=== PATIENT | female | born 1995 | race Caucasian/White ===

== ENCOUNTER 2022-02-02 00:25 | Day surgery (SDC) | payer BC, SELFPAY ==
[2022-01-25 11:16] VITALS: BMI 21.0
--- NOTE | 2022-02-02 09:16 | P.PNAN_ITS ---
Anes - Initial Pre Proc Eval Procedure: Operation Date: 02/02/22 13:30 Proposed Procedures p Colonoscopy - Avila Davis MD Date/Time: 02/02/22 09:16 Surgeon: Avila Davis MD Pre Op Diagnosis: abdominal bloating, diarrhea Patient Data Age: 26 Gender: F Height: 1.7 m Weight: 61 kg Allergies Allergy/AdvReac Type Severity Reaction Status Date / Time nabumetone Allergy Unknown RASH Verified 02/02/22 12:22 Home Medications Medication Instructions Recorded Confirmed Type No Home Medications 07/15/21 02/02/22 History Patient hx anesthesia problems: none Family hx anesthesia problems: none Results Review: All pre-operative results and documents have been reviewed as part of the pre-operative evaluation. [facility] Past Medical History Medical History Abdominal bloating Asthma Chronic diarrhea Family History Family History Mother Diabetes mellitus Patient's mother is in good health Social History Social History Smoking status: Never smoker Alcohol intake: current Alcohol use details: occasionally Substance use: never Substance use type: does not use Living arrangements: with family Spiritual care concerns: No Anes - Eval Final PreProcedure Day of Procedure 02/02/22 09:16 Patient weight: normal Heart: regular rate and rhythm Lungs: clear to auscultation and normal air movement Airway: Mallampati scale class II Neurological: alert and oriented Last oral intake: >/= 8 hours ASA classification: I Emergent: no Anesthetic plan: proceed Anesthesia type and monitoring: general GIVS Results Review: All pre-operative results and documents have been reviewed as part of the pre-operative evaluation. Informed Consent: The patient's anesthetic plan and its attendant risks and benefits were discussed with the patient/family/POA. Questions were solicited and answers provided to the satisfaction of the patient/family/POA.
[2022-02-02 12:08] VITALS: BP 111/66; PULSE 90; RESP 18; TEMP 36.2; O2SAT 100; BMI 19.4
--- NOTE | 2022-02-02 12:43 | PM.HPGS ---
History of Present Illness History of Present Illness Consent: Risks, benefits, and alternatives have been discussed and questions answered. Patient agrees to proceed with procedure. Chief complaint: abdominal bloating, diarrhea Narrative: Patricia Doherty is a 26 year old female who for many years she has suffered from a great deal of abdominal distension and bloating. Typically she will feel fine in the morning, especially if she has a morning bowel movement. As the day goes on she gets uncomfortable with bloating and cramping. There is no particular pattern. Eating does not seem to affect it. Her weight is stable. She may not have a bowel movement for 3 or 4 days. Then when her bowels do move is usually loose. At times her bowels are very loose. She does not have blood in her stools. Serology for inflammatory bowel disease was negative. Review of Systems Review of Systems: All systems reviewed & are unremarkable except as noted in HPI and below PMFSH Past Medical History Medical History Abdominal bloating Asthma Chronic diarrhea Family History Family History Mother Diabetes mellitus Patient's mother is in good health Social History Social History Smoking status: Never smoker Alcohol intake: current Alcohol use details: occasionally Substance use: never Substance use type: does not use Living arrangements: with family Spiritual care concerns: No Meds Home Medications and Allergies Home Medications Medication Instructions Recorded Confirmed Type No Home Medications 07/15/21 02/02/22 History Allergies Allergy/AdvReac Type Severity Reaction Status Date / Time nabumetone Allergy Unknown RASH Verified 02/02/22 12:22 Vital Signs Vital Signs - 24 hr 02/02/22 12:08 Temperature 36.2 C L Pulse Rate 90 Respiratory Rate 18 Blood Pressure 111/66 Pulse Oximetry 100 Exam Const: General: alert Orientation/consciousness: patient oriented x3 Resp: Auscultation: clear to auscultation bilaterally Cardio: Rhythm: regular rhythm GI: GI Palp: Yes Soft to palpation and No Tenderness to palpation present (GI) Neuro: General: patient oriented x3 Assessment and Plan Assessment and plan (1) Chronic diarrhea: Code(s): K52.9 - Noninfective gastroenteritis and colitis, unspecified Status: Acute Assessment and Plan: Colonoscopy with possible biopsy or polypectomy or cautery or injection of substances.
[2022-02-02] MEDS: LACTATED RINGERS 1,000 ML 150 ML IV CONT (13:00)
[2022-02-02 13:31] VITALS: BP 82/48; PULSE 67; RESP 18; O2SAT 99
[2022-02-02 13:41] VITALS: BP 93/60; PULSE 73; RESP 16; O2SAT 100
[2022-02-02 13:51] VITALS: BP 98/63; PULSE 63; RESP 24; O2SAT 100
== END 2022-02-02 14:00 | disposition home or self-care (01) ==
PROVIDERS: PCP Internal Medicine; Visit Provider Internal Medicine Gastroenterology
PROC: 0DJD8ZZ Inspection of Lower Intestinal Tract, Via Natural or Artificial Opening Endoscopic (ICD-10-PCS; CPT 45378; principal; 2022-02-02 13:30)
DX: R19.7 Diarrhea, unspecified (principal); D12.4 Benign neoplasm of descending colon
CPT/HCPCS: 45380; 88305; J2704; J7120

== ENCOUNTER 2024-12-17 20:44 | Outpatient (RCR) | payer BC, SELFPAY ==
[2024-12-17 21:32] VITALS: BP 112/50; PULSE 72
== END 2025-01-25 07:41 | disposition home or self-care (01) ==
LOC: ANHOBOP 20:44
PROVIDERS: Referring Provider Advanced Practice Midwife; Visit Provider Obstetrics & Gynecology
DX: O36.8130 Decreased fetal movements, third trimester, not applicable or unspecified (principal); Z3A.35 35 weeks gestation of pregnancy
CPT/HCPCS: 59025

== ENCOUNTER 2025-01-22 22:48 | Inpatient (IN) | payer BC, SELFPAY ==
[2025-01-22 22:57] VITALS: TEMP 36.6
[2025-01-22 23:22] VITALS: PULSE 71; O2SAT 99
--- OUTSIDE RECORDS SUMMARY | 2025-01-22 23:25 | XMS_ITS | Patient Health Record ---
Author Organization [facility] Address [address] [place] [address] [address] [place] [address] Care Team Providers Care Manager Mba Name Role Phone Sharon Holley Primary Care Provider ALLERGIES Allergen (clinical drug ingredient) Drug/Non Drug Allergy documented on EMR Reaction Allergy Type Onset Date Status nabumetone Nabumetone rash Drug Allergy Activ e REASON FOR REFERRAL No Information IMMUNIZATIONS Vaccine Route Administration Date Status Comme nts zzzInfluenza (Flublok 18+) IM Intramuscular 11/09/2022 Adm inistered SOCIAL HISTORY Tobacco Use: Social History Observation Description Date Details (start date - stop date) Never Smoker NA - NA Sex Assigned At : Social History Observation Description Sex Assigned At Unknown Alcohol Screening Done? Question Answer Notes Did you have a drink contain ing alcohol in the past year? Yes How often did you have a dri nk containing alcohol in the past year? Two to three times per week (3 points) How many drinks did you have on a typical day when you were drinking in the past year? 1 or 2 (0 points) How often did you have six o r more drinks on one occasion in the past year? Never (0 points) Points 3 GA Screenings: Question Answer Notes Smoking Status: Never Smoker Alcohol Screening: Positive PROBLEMS Problem Type ICD Code Onset Dates Problem Status W/U Status Risk SNOMED Code Notes Problem Other headache syndrome (G44.89) Active confirmed 784142306 Problem Chronic fatigue (R53.82) Active confirmed 39684367 Problem Low blood glucose measurement (E16.2) Active confirmed 280005409 PLAN OF TREATMENT Pending Test Test Name Order Date Hemoglobin A1C (DP 12) (CPT 40950) 11/13 -Blood Draw / Specimen Handling Fee 10/27 Insurance Providers Payer Name Payer Address Payer Phone Subscriber Number Group Number Insured Name Patient Relationship to Insured Coverage Start Date Coverage End Date [facility] [address] [place] [address] [id number] Patricia Whitehead Self - patient is the insured MEDICAL (GENERAL) HISTORY Medical History History ICD Code Asthma// resolved IBS/SIBO//[facility] colonoscopy due 2024 Surgical History Surgery Date(Month/Year) appendectomy 02/2009 colonoscopy / polyp , rpt in 3 yrs 2 Left foot, plantar faciatis 09/29/2022 Hospitalization History Reason Date(Month/Year) as above
--- OUTSIDE RECORDS SUMMARY | 2025-01-22 23:25 | XMS_ITS | Continuity of Care Document ---
Author Organization [facility] Address [address] [place] [address] Phone Care Team Providers Care Shipping Lead Person Name Role Phone Francisco Javier Vásquez MD Unavailable Unavailable Allergies, Adverse Reactions, Alerts Substance Reaction Status Criticality No Known Allergies Active No Inform ation Medications Medication Instructions Dosage Effective Dates (start - stop) Status Comments Pulmicort Flexhaler 180 mcg/actuation breath activated INHALE 2 PUFFS (180MCG) EVERY DAY - Active ProAir RespiClick 90 mcg/actuation breath activated inhale 2 puff by inhalation route every 4 - 6 hours as needed 180 MCG - Active Pulmicort Flexhaler 180 mcg/actuation breath activated INHALE 2 PUFFS (180MCG) EVERY DAY - No Longer Active Advance Directives Directive Yes / No Effective Date File Name No Information Encounters Encounter Description Practice Location Reason(s) For Visit Diagnoses Date Provider Providers Copied on Encounter [facility], [address], [place], [place], [id number] , [place] tel: [phone] [facility] No Information 7 Fahad Mcintyre. [address], [id number], [place]. tel:[phone] [facility], [address], [place], [place], [address] , [place] tel: [phone] [facility] Mild persistent asthma, uncomplicated 7 Fahad Mcintyre. [address] [facility], [address], [id number], [place]. [phone] Referring Provider: iJtendra Issa, [address] [facility] [address], [place], [address]. tel:[phone] [facility], [address], [place], [place], [id number] , [place] tel: [phone] [facility] Mild persistent asthma, uncomplicated Jun-0 6 Onel Dorado. [address] [facility], [address], [id number], [place]. [phone] Referring Provider: Francisco Javier Vásquez, [address] [place] [address], [place], [address] . tel:[phone] [facility], [address], [place], [place], [id number] , [place] tel: [phone] [facility] INTRINSIC ASTHMA, UNSPECIFIED 5 Fahad Mcintyre. [address] [facility], [address], [id number], [place]. [phone] Referring Provider: Jitendra Issa, [address] [facility] [address], [place], [address]. tel:[phone] [facility], [address], [place], [place], [address] , [place] tel: [phone] [facility] INTRINSIC ASTHMA, UNSPECIFIED 4 Fahad Mcintyre. [address] [facility], [address], [id number], [place]. [phone] Referring Provider: Mirza Pham, [address], [place], [address]. tel:[phone] [facility], [address], [place], [place], [id number] , [place] tel: [phone] [facility]hma 3 Radha Monteiro. [address], [place], [place], [id number]. tel:[phone] Referring Provider: Francisco aJvier Vásquez, [address] [place] [address], [address] . tel:[phone] [facility], [address], [place], [place], [id number] , [place] tel: [phone] [facility] INTRINSIC ASTHMA, UNSPECIFIED 3 Fahad Mcintyre. [address] [place] [address], [address], [id number], [place]. tel:[phone] Referring Provider: Mirza Cruz, [address] [address], [place], [address]. tel:[phone] [facility], [address], [place], [place], [id number] , [place] tel: [phone] [facility] ASTHMA,UNSPECIFI ED TYPE, UNSPECIFIED 2 Radha Monteiro. [address], [place], [place], [id number]. tel:[phone] Referring Provider: Francisco Javier Vásquez, [address] [place] [address], [address] . tel:[phone] [facility] [address], [place], [place], [id number] , [place] tel: [phone] [facility] INTRINSIC ASTHMA, UNSPECIFIEDNASAL & SINUS DIS NECOther diseases of vocal cords 1 Fahad Mcintyre. [address] [facility], [address], [id number], [place]. [phone] Referring Provider: Pooja Gand[address] [address], [place], [address]. tel:[phone] [facility], [address], [place], [place], [address] , [place] tel: [phone] [facility] INTRINSIC ASTHMA NOS Sep-3 0 Fahad Mcintyre. [address], [id number], . tel:[phone] Family History Family Member Type Diagnosis Age At Onset No Information Payers Payer name Insurance type Covered alliance party ID Authortom vera(s) [employer] [facility] [id number] Social History Type Description Quantity Date Captured Comments Sex Female Smoking Status No Information Chief Complaint And Reason For Visit No Information Reason For Referral Reason For Referral No Information History Of Present Illness Encounter Date Complaint History Of Prese nt Illness No Information Functional Status Date Functional Assessmen t No Information Instructions Date Instruction Additional Infor mation No Information Assessments Type Assessment Date No Information Patient Care Teams Name Effective Dates (start - stop) Status Members No Information
--- OUTSIDE RECORDS SUMMARY | 2025-01-22 23:25 | XMS_ITS | Data Portability ---
Author Organization [facility] Address [address] [place] [address] Assessment Encounter Date Assessment Date Assessment LastModified by Organization Details LastModified Time 12/18/2024 12/18/2024 Patient is __35_weeks . Discussed plan. Not available 12/18/2024 14:33:54 12/25/2024 12/25/2024 Patient is _36__weeks . Discussed plan. [email or web address] Not available 12/25/2024 12:35:24 01/01/2025 01/01/2025 Patient is _37__weeks . Discussed plan. Not available 01/01/2025 11:36:27 01/08/2025 01/08/2025 Patient is _38__weeks . Discussed plan. [email or web address] Not available 01/08/2025 11:05:30 01/17/2025 01/17/2025 Patient is __39_weeks . Discussed plan. Not available 01/17/2025 16:08:23 Plan of Treatment Reminders Order Date Submit Date Provider Last Modified By Organization Details Last Modified Time Details Appointments U/S OB BPP 2024 12:30P M ULTRASOUND Not available Not available Not available NST 2024 01:00P M NST SCHEDULE Not available Not available Not available OB ROUTINE 2024 01:30P M Junie Lester CNM Not available Not available Not available Lab None recorde d. Referral None recorde d. Procedures None recorde d. Surgeries None recorde d. Imaging None recorde d. Medication Orders None recorde d. Patient TargetsNo targets recorded. Patient InstructionsNo instructions recorded. Reason for Referral None Reported. Results Created Date Observation Date Name Description Value Unit Range Abnormal Flag Note LastModifiedBy Organization Detail LastModifiedTime 12/04/1912/04/2024 CT/GC AND TRICH OMONA S VAGIN HEMANTH (RRNA ), URINE chlamydia trachomatis, PCR Negati ve negati ve Not Available [facility] (Lab) [address], [place], [address], 12/05/2024 22:02:21 12/04/1912/04/2024 CT/GC AND TRICH OMONA S VAGIN HEMANTH (RRNA ), URINE neisseria gonorrhoeae, PCR Negati ve negati ve Not Available [facility] (Lab) [address], [place], [address], 12/05/2024 22:02:21 12/04/1912/04/2024 CT/GC AND TRICH OMONA S VAGIN HEMANTH (RRNA ), URINE trichomonas vaginalis ribosomal RNA (rrna) Negati ve negati ve Not Available [facility] (Lab) [address], [place], [address], 12/05/2024 22:02:21 12/04/1912/04/2024 CULTU RE: URINE result report SEE RESULT S BELOW Test: Cultu re: Urine Speci men Sourc e: Urine - Clean Catch Speci men Type: Urine Speci men Date: 1744 Resul t Date: 2057 Resul t Statu s: Final resul t Abnor mal: No Resul ting Lab: [facility] [address] [facility] [address] Tel: CULTU RE ----- ----- ----- --- No growt h in 1 day (dete ction level of 10,00 0 colon ies / ml.) Not Available [facility] (Lab) [address] [place], [address], 12/05/2024 22:02:21 12/04/19 25 12/04/2024 drug scree n, urine Amphetamines : negati ve Not Available [facility] [address], [place], [address], 12/04/2024 12:11:25 12/04/19 25 12/04/2024 drug scree n, urine Cannabinoids : negati ve Not Available [facility] [address], [place], [address], 12/04/2024 12:11:25 12/04/19 25 12/04/2024 drug scree n, urine Cocaine: negati ve Not Available [facility] [address], [place], [address], 12/04/2024 12:11:25 12/04/19 25 12/04/2024 drug scree n, urine Opiates: negati ve Not Available [facility] [address], [place], [address], 12/04/2024 12:11:25 12/04/19 25 12/04/2024 drug scree n, urine Phenocyclidi ne: negati ve Not Available [facility] [address], [place], [address], 12/04/2024 12:11:25 12/04/19 25 12/04/2024 drug scree n, urine Barbiturates : negati ve Not Available [facility] [address], [place], [address], 12/04/2024 12:11:25 12/04/19 25 12/04/2024 drug scree n, urine Benzodiazepi freddy: negati ve Not Available [facility] [address], [place], [address], 12/04/2024 12:11:25 12/04/19 25 12/04/2024 drug scree n, urine Ethanol: negati ve Not Available [facility] [address], [place], [address], 12/04/2024 12:11:25 12/04/19 25 12/04/2024 drug scree n, urine Hallucinogen s: negati ve Not Available [facility] [address], [place], [address], 12/04/2024 12:11:25 12/04/19 25 12/04/2024 drug scree n, urine Inhalants: negati ve Not Available [facility] [address], [place], [address], 12/04/2024 12:11:25 12/04/19 25 12/04/2024 drug scree n, urine Anabolic Steroids: negati ve Not Available [facility] [address], [place], [address], 12/04/2024 12:11:25 12/04/19 25 12/04/2024 drug scree n, urine Other: negati ve Not Available [facility] [address], [place], [address], 12/04/2024 12:11:25 12/25/19 25 12/25/2024 CULTU RE: GROUP B STREP SCREE N, REFLE X SUSCE PTIBI LITY result report SEE RESULT S BELOW Test: Cultu re: Group B Strep , Refle x Susce ptibi lity ([facility] ) Speci men Sourc e: Vagin a/Rec stewart Speci men Type: Vagin al/Re ctal Speci men Date: 2024 1333 Resul t Date: 025 1410 Resul t Statu s: Final resul t Abnor mal: No Resul ting Lab: [facility] [address] [facility] [address] Tel: CULTU RE ----- ----- ----- --- No Group B strep isola kvng at 2 days (sherly ctive broth enhdeyanira martines t) Not Available [facility] (Lab) [address], [place], [address], 12/28/2024 15:13:53 12/04/19 25 12/04/2024 US, obste tric, follo w-up No observ ation record ed. [email or web address] [facility] [address], [place], [address], 12/04/2024 13:09:18 12/04/19 25 12/04/2024 US, obste tric, follo w-up No observ ation record ed. [email or web address] [address] [facility], [place], [address], 12/04/2024 14:37:48 12/17/19 25 12/17/2024 non-s tress test No observ ation record ed. [address] [facility] [address], [place], [address], 12/19/2024 18:37:11 01/18/20 25 01/18/2025 non-s tress test No observ ation record ed. [address], [place], [address], 01/21/2025 16:56:20 Result Notes None recorded. Problems Name Problem SNOMED Code Status Onset Date Resolution Date Notes Provider Name and Address Organization Details Recorded Time [id number] Active 025 Naila Paez [facility] 12:07:31 Problem Notes None recorded. Procedures Surgical History Date Name Laterality Status Provider Name and Address Organization Details Recorded Time 05/27/20 24 Date of Last Pap Smear completed Naila Paez [facility] 12/04/2024 11:52:00 09/27/20 22 procedure on foot completed Naila Paez [facility] 12/04/2024 11:54:04 01/26/20 22 completed [facility] 12/04/2024 11:52:00 01/26/20 22 Date of Last Colonoscopy completed [facility] 12/04/2024 11:52:00 01/26/20 22 Colonoscopy completed [facility] 12/04/2024 12:07:12 04/27/20 15 procedure on foot completed [facility] 12/04/2024 11:53:32 02/26/20 09 Appendectomy completed [facility] 12/04/2024 11:52:33 Imaging Results Imaging Date Name Status LastModified by Organiz ation Details LastModified Time 12/04/2024 US, obstetric, follow-up completed [email or web address], [place], [address], 12/04/2024 13:09:18 12/04/2024 US, obstetric, follow-up completed [email or web address], [place], [address], 12/04/2024 14:37:48 12/17/2024 non-stress test completed [address] [place] [address], [address], 12/19/2024 18:37:11 01/18/2025 non-stress test active [address], [place], [address], 01/21/2025 16:56:20 Procedure Notes None recorded. Medical Equipment None Reported. Allergies Allergen ID Allergen Name Allergen Category Reaction Reaction Severity Criticality Documentation Date Start Date Code Code System Note Provider Name and Address Organization Details Recorded Time 05734 [place] e medicatio n hives mild Not available 12/04/2024 01863 RxNorm Naila Paez [facility] 11:52:00 Vitals Date Recorded Body height Body mass index (BMI) Body weight Systolic blood pressure Diastolic blood pressure Provider Name and Address Organization Details Last Updated DateTime 12/18/2024 170.82 cm 25.3 kg/m2 15793.55 631 g 104 mm[Hg] 68 mm[Hg] Naila Paez [facility] 14:17:52 Date Recorded Body height Body mass index (BMI) Body weight Systolic blood pressure Diastolic blood pressure Provider Name and Address Organization Details Last Updated DateTime 12/25/2024 170.82 cm 25.5 kg/m2 13749.14 868 g 105 mm[Hg] 68 mm[Hg] Naila Paez [facility] 12:16:59 Date Recorded Body height Body mass index (BMI) Body weight Systolic blood pressure Diastolic blood pressure Provider Name and Address Organization Details Last Updated DateTime 01/01/2025 170.82 cm 26.1 kg/m2 44721.51 816 g 107 mm[Hg] 68 mm[Hg] Naila Paez [facility] 11:06:35 Date Recorded Body height Body mass index (BMI) Body weight Systolic blood pressure Diastolic blood pressure Provider Name and Address Organization Details Last Updated DateTime 01/08/2025 170.82 cm 26.1 kg/m2 78121.51 816 g 101 mm[Hg] 64 mm[Hg] Naila Paez [facility] 5 11:03:20 Date Recorded Body height Body mass index (BMI) Body weight Systolic blood pressure Diastolic blood pressure Provider Name and Address Organization Details Last Updated DateTime 01/17/2025 170.82 cm 26.1 kg/m2 51117.51 816 g 99 mm[Hg] 65 mm[Hg] Naila Paez [facility] 15:59:05 Social History Question Answer Notes LastModified by Organizat ion Details LastModified Time Tobacco Smoking Status Never Smoker Naila Paez [facility], [facility] 12/04/2024 12:07:01 Do You Have An Advance Directive? No [email or web address] Information n ot available 12/04/2024 What Is Your Level Of Alcohol Consumption? None [email or web address] Information not available 12/04/2024 If You Are , What Was Your Level Of Alcohol Consumption Prior To ? Moderate [email or web address] Information not available 12/04/2024 How Many Years Have You Consumed Alcohol? 7 [email or web address] Information not available 12/04/2024 Are You Blind Or Do You Have Difficulty Seeing? No Information n ot available 12/04/2024 What Is Your Level Of Caffeine Consumption? Moderate [email or web address] Information not available 12/04/2024 How Much Tobacco Do You Chew? None [email or web address] Information not available 12/04/2024 In The 14 Days Before Symptom Onset, Have You Had Close Contact With A Laboratory-confirm ed COVID-19 While That Case Was Ill? No [email or web address] Information n ot available 12/04/2024 In The 14 Days Before Symptom Onset, Have You Had Close Contact With A Person Who Is Under Investigation For COVID-19 While That Person Was Ill? No Information not available 12/04/2024 Have You Been To An Area Known To Be High Risk For COVID-19? No [email or web address] Information not available 12/04/2024 Are You Deaf Or Do You Have Serious Difficulty Hearing? No [email or web address] Information not available 12/04/2024 What Type Of Diet Are You Following? REGULAR [email or web address] Information n ot available 12/04/2024 What Is The Highest Grade Or Level Of School You Have Completed Or The Highest Degree You Have Received? [id number] Information not available 12/04/2024 Are There Any Guns Present In Your Home? No [email or web address] Information not available 12/04/2024 Do You Use Protection During Sex? No Information not available 12/04/2024 Do You Use Your Seat Belt Or Car Seat Routinely? Yes [email or web address] Information not available 12/04/2024 Do You Have Smoke And Carbon Monoxide Detectors In Your Home? No [email or web address] Information not available 12/04/2024 How Much Tobacco Do You Smoke? No Information not available 12/04/2024 Do You Feel Stressed (tense, Restless, Nervous, Or Anxious, Or Unable To Sleep At Night)? [id number] [email or web address] Information not available 12/04/2024 Do You Use Any Illicit Or Recreational Drugs? No [email or web address] Information not available 12/04/2024 Do You Use Sunscreen Routinely? Yes [email or web address] Information not available 12/04/2024 Has Tobacco Cessation Counseling Been Provided? No [email or web address] Information not available 12/04/2024 Have You Used IV Drugs? No [email or web address] Information not available 12/04/2024 Do You Or Have You Ever Used Any Other Forms Of Tobacco Or Nicotine? No [email or web address] Information not available 12/04/2024 Sex: Unknown Functional Status Question Answer Note LastModified by Organizat ion Details LastModified Time Do you have difficulty walking or climbing stairs? No [email or web address] Information not available 12/04/2024 Are you able to walk? YESWOREST Information not available 12/04/2024 Are you able to care for yourself? Yes [email or web address] Information not available 12/04/2024 Do you have difficulty dressing or bathing? No [email or web address] Information not available 12/04/2024 What is your exercise level? Moderate [email or web address] Information not available 12/04/2024 Mental Status None recorded. Family History Relationship Description Onset Age of this Age Resolved Age Notes LastModified by Organization Details LastModified Time Mother Hypertensive disorder [email or web address] Not available 12/04 11:52:00 Mother Diabetes mellitus [email or web address] Not available 12/04 11:52:00 Maternal Aunt Hypertensive disorder [email or web address] Not available 12/04 11:52:00 Maternal Aunt Diabetes mellitus [email or web address] Not available 12/04 11:52:00 Maternal Grandmother Diabetes mellitus [email or web address] Not available 12/04 11:52:00 Maternal Grandmother Hypertensive disorder [email or web address] Not available 2024 10:46:36 Maternal Grandfather Hypertensive disorder [email or web address] Not available 2024 10:46:36 Paternal Grandfather Hypertensive disorder [email or web address] Not available 2024 10:46:36 Paternal Grandmother Hypertensive disorder [email or web address] Not available 2024 10:46:36 Medical History Condition Response Allergies (Food, seasonal, environmental ) Y Other N Drug/Latex Allergies/Reactions Y Breast Cancer N Blood Transfusion N Lung Disease N Dermatologic Disorders N Defects or Inherited Disease N Breast Problem N Gestational Diabetes N Hematologic disorders N Anesthesia Complications N History of STI N Deep Vein Thrombosis N Polycystic ovary syndrome N Anxiety Disorder N Autoimmune disease N Arthritis N Polyps N Infertility N History of abnormal pap N Acid Reflux (GERD) N Cancer N Varicosities N Stroke N Neurologic/Epilepsy N Endometriosis N High Cholesterol N Headaches N Fibromyalgia N Kidney Disease N Heart Problems N Thyroid Problems N Kidney or Bladder Problems N GI Problems N Eating Disorder N Anemia N Art (IVF or FET) N Psychiatric Illness N Ovarian Cancer N Diabetes N Pulmonary (TB, Asthma) N Hepatitis/Liver Disease N No Past Medical History N Eczema N Urinary Tract Infection N Abuse/Domestic Violence N Asthma Y Trauma/Violence N Depression/ depression N Heart Disease N Pre-Eclampsia N Hypertension N Osteoporosis N Thrombophilias N Gynecological History Statement/Question Response Abnormal Pap N Date of Last Mammogram Date of LMP 04/15/2024 On BCP's at Conception? N N Was last menstrual period normal N STIs/STDs N HPV Vaccine Y Duration of Flow (days) 5 Current Control Method Date of Last Colonoscopy 01/25/2022 Frequency of Cycle (Q days) 28 Sexually Active? Y Date of DEXA bone scan Age of first menstrual cycle 17 Date of Last Pap Smear 05/27/2024 Sexual Problems? N LMP Approximate 01/25/2022 N Obstetrics History GPAL:G 1 P 0 0 0 0 Type Value Living 0 Total 1 Past Encounters Encounter ID Performer Location Encounter Start Date Encounter Closed Date Diagnosis/Indication Diagnosis SNOMED-CT Code Diagnosis ICD10 Code Diagnosis Note [id number] Corazon Hastings [facility] [address] [address] 12/04/2024 10:52:33 12/04/2024 11:32:40 Medical examination for suspected condition 431477266 Z03.74 Z3A.33 [id number] Junie Lester [facility] [address],[place] [address] 12/04/2024 10:53:39 12/04/2024 14:34:47 Routine care 647814829 Z34.93 Venereal d isease screening 002449445 Z11.3 Gestation period, 33 weeks 86233916 Z3A.33 [id number] Junie Lester [facility] [address],[place] [address] 12/18/2024 14:07:47 12/18/2024 14:49:27 Gestation period, 35 weeks 96130421 Z3A.35 [id number] Junie Lester [facility] [address],[place] [address] 12/25/2024 12:10:40 12/25/2024 12:41:10 Gestation period, 36 weeks 42868336 Z3A.36 [id number] Junie Lester [place] [address] [address] 01/01/2025 10:46:28 01/01/2025 11:42:04 Gestation period, 37 weeks 14507706 Z3A.37 [id number] Junie Lester [facility] [address],[place] [address] 01/08/2025 10:43:40 01/08/2025 11:14:57 Gestation period, 38 weeks 21453908 Z3A.38 [id number] Junie Lester [facility] [address],[place] [address] 01/17/2025 15:29:29 01/17/2025 16:15:57 Gestation period, 39 weeks 16786084 Z3A.39 Health Concerns Section Related Observation LastModified by Organization Detai ls LastModified Time None Recorded Concern Status LastModified by Organization Details LastModified Time None Recorded Advance Directives Directive N: Payers Encounter Date Sequence Insurance Name Policy Number Policy Jiménez Covered Member ID Jiménez Member ID Guarantor Name 12/18/2024 1 [place] [id number] Mack Whitehead [id number] Patricia M Ventura 12/25/2024 1 [place] [id number] Mack Daileyner [id number] Patricia Mcclellan [place] 01/01/2025 1 [place] [id number] Mack Whitehead [id number] Patricia M Ventura 01/08/2025 1 [place] [id number] Mack Whitehead [id number] Patricia Mcclellan [place] 01/17/2025 1 [place] [id number] Mack Whitehead [id number] Patricia Whitehead OBGyn Episode Ob Episode Information Episode Created Date Number of Fetuses Patient Bloodtype Patient rh Status Prepregnancy Weight lbs Domestic Partner Domestic Partner Phone Father Name Metal Sorter Status 12/04/19 25 1 O Positive OPEN Fetus Data First Name Last Name Admitted to NICU Weight (g) Sex Living Outcome Pediatric Complications Fetus ID Race Codes Race Delivery Type [id number] Donald Calculation Initial Donald Date Initial Exam Date Initial Exam Provider Initial Ultrasound Date Last Menstrual Period Date Ultra Sound Weeks Gestation 01/20/2025 12/04/2024 12/04/2024 04/15/2024 33 Eighteen To Twenty Week Donald Update Ultra Sound Date Fundal Height At Umbil Quickening Date Ultra Sound Latest Weeks Gestation Final Donald Confirmed By Final Donald Confirmed Date Final Donald Date Ultra Sound Latest Days Gestation 0 01/20/20 25 0 Pre- Flowsheet Flowsheet Date 12/04/2024 [place] Score Blood Edema Fundus Height Fundus Units Glucose Ketones Leukocytes Nitrite Labor Signs Protein Cervic Dilation Cervic Effacement Cervic Station neg none none trace Type Weight in lbs Pre/Post Dialysis Refused Weight 161.130210168931 BP Diastolic BP Location Tested BP Systolic BP Type 70 105 Fetus Heart Rate Present Fetus Movement A Yes Comments Flowsheet Date 12/18/2024 [place]ittington Score Blood Edema Fundus Height Fundus Units Glucose Ketones Leukocytes Nitrite Labor Signs Protein Cervic Dilation Cervic Effacement Cervic Station neg none 35 cm Type Weight in lbs Pre/Post Dialysis Refused 163.149431492633 BP Diastolic BP Location Tested BP Systolic BP Type 68 104 Fetus Heart Rate Present A 146 Present Fetus Movement A Yes Comments Patient is contractions, joel sea and vomiting. planning low intervention , +FM, has preadmission scheduled, gbs next week education and precautions f/u one week Flowsheet Date 12/25/2024 [place]ittington Score Blood Edema Fundus Height Fundus Units Glucose Ketones Leukocytes Nitrite Labor Signs Protein Cervic Dilation Cervic Effacement Cervic Station neg none neg Type Weight in lbs Pre/Post Dialysis Refused 164.68302791634 BP Diastolic BP Location Tested BP Systolic BP Type 68 105 Fetus Heart Rate Present Fetus Movement A Yes Comments Patient states that is havin g some nausea. reviewed labor precautions, +FM cervix ft/soft, gbs collected, precautions and education f/u 1 week Flowsheet Date 01/01/2025 Whittington Score Blood Edema Fundus Height Fundus Units Glucose Ketones Leukocytes Nitrite Labor Signs Protein Cervic Dilation Cervic Effacement Cervic Station neg none 35 cm Type Weight in lbs Pre/Post Dialysis Refused 168.225455908495 BP Diastolic BP Location Tested BP Systolic BP Type 68 107 Fetus Heart Rate Present A 140 Fetus Movement A Yes Comments Patient states that is havin g some pain and nausea. +FM, precautions and education f/u one week Flowsheet Date 01/08/2025 [place]ittington Score Blood Edema Fundus Height Fundus Units Glucose Ketones Leukocytes Nitrite Labor Signs Protein Cervic Dilation Cervic Effacement Cervic Station neg none 36 cm Type Weight in lbs Pre/Post Dialysis Refused 168.264506562253 BP Diastolic BP Location Tested BP Systolic BP Type 64 101 Fetus Heart Rate Present A 144 Fetus Movement A Yes Comments Patient states that is havin g some contractions. cervix soft/FT +FM, doing well, precautions and education Flowsheet Date 01/17/2025 [place]ton Score Blood Edema Fundus Height Fundus Units Glucose Ketones Leukocytes Nitrite Labor Signs Protein Cervic Dilation Cervic Effacement Cervic Station neg none 37 cm 1cm 60% -2 Type Weight in lbs Pre/Post Dialysis Refused 168.814316616073 BP Diastolic BP Location Tested BP Systolic BP Type 65 99 Fetus Heart Rate Present A 147 Fetus Movement A Yes Comments Patient has had contraction. labor precautions, +FM, education and precautions discussed placental insufficiency after term plan bpp next week Menstrual History Last Menstrual Date Menses Monthly On Bcp Conception Prior Menses Frequency Hcg Plus Date Menarche Onset Age 0504/15/2024 Delivery Information Delivery Date Delivery Type Labor Anesthesia Weeks Gestation Incision Type Labor Labor Length Hrs Delivered By Post Complications Tubal Sterilization Discharge Date Comments Discharge Information Feeding Method Contraceptive Method Maternal HG B and HCT Levels
--- OUTSIDE RECORDS SUMMARY | 2025-01-22 23:25 | XMS_ITS | Clinical Summary ---
Author Organization [facility] Care Address [address] [place] [address] Care Team Providers Care [employer] Name Role Phone Pcp, None Per Patient Primary Care Provider Unav ailable Source Comments In the event that these patient records contain information protected by 42 CFRpart 2 (i.e., would identify the patient as a substance abuser and was obtainedby a federally assisted substance abuse program to diagnose, refer fortreatment or treat the patient for substance abuse), please be advised of thefollowing: This information has been disclosed to you from records protected by Federalconfidentiality rules (42 CFR part 2). The Federal rules prohibit you frommaking any further disclosure of this information unless further disclosure isexpressly permitted by the written consent of the person to whom it pertains oras otherwise permitted by 42 CFR part 2. A general authorization for therelea se of medical or other information is NOT sufficient for this purpose.The Federal rules restrict any use of the information to criminally investigateor prosecute any alcohol or drug abuse patient. expressly permitted by the written consent of the person to whom it pertains or as otherwise permitted by 42 CFR part 2. A general authorization for the release of medical or other information is NOT sufficient for this purpose. The Federal rules restrict any use of the information to criminally investigate or prosecute any alcohol or drug abuse patient.[facility] Allergies Active Allergy Reactions Criticality Noted Date Comments Nabumetone Rash Low 09/12/2022 Medications No known medications Active Problems Problem Noted Date Diagnosed Date Scar 04/10/2023 Assessment & Plan (06/28/2023 11:51 AM EDT): Etiology, possible treatments, length of time to resolution and possible recurrence or continuation of pain reviewed with patient for their pathology. Surgical goal and conservative treatments for their pathology reviewed in detail. Treatment measures were reviewed in detail. Written instructions and description of etiology was sent with patient upon discharge. All questions were answered for patient. They relate complete understanding of their pathology and treatment course. Return appointment discussed. Pain now is minimally present in the area of surgery. No further swelling is noted. Mild hypertrophy of the scar is noted recommend the patient continue scar massage and comfortable shoes. Shoe list was dispensed Assessment & Plan (04/10/2023 12:27 PM EDT): Etiology, possible treatments, length of time to resolution and possible recurrence or continuation of pain reviewed with patient for their pathology. Surgical goal and conservative treatments for their pathology reviewed in detail. Treatment measures were reviewed in detail. Written instructions and description of etiology was sent with patient upon discharge. All questions were answered for patient. They relate complete understanding of their pathology and treatment course. Return appointment discussed. Steroid Shot: Steroid shot risks benefits and possible steroid flare discussed and patient consented to being given an injection. The left injection site was prepped in sterile an aseptic fashion. 3 cc of a mixture of 1% lidocaine, Dexamethasone PO4 and Kenalog (equal parts) was injected into the site site per the diagnosis and area of most discomfort. If ultrasound guidance was deemed needed it was performed for injection placement. A dry sterile dressing was applied. Post injection instructions were given. Possibility of a steroid flare in pain after the injection was discussed. Possibility of the injection not improving symptoms was also discussed. Ultrasound guidance performed Yes. The ultrasound was utilized for injection placement. Plantar fasciitis 07/20/2022 Assessment & Plan (11/10/2022 9:18 AM EST): Post-Op Visit #4: Elevation of the foot to the level of the hip as much as needed. Continue to ice 2-3 times a day PRN. Continue use of comfortable shoe. May continue range of motion exercise. Examples reviewed for range of motion. May continue scar treatments if currently performing. Continue NSAID PRN if currently taking per physician recommendation. Edema and pain to occur in the area x 3-6 months. May return to activities as tolerated. Assessment & Plan (10/13/2022 10:16 AM EST): Post-Op Visit #2: Elevation of the foot to the level of the hip as much as possible. Continue to ice 2-3 times a day for 30-45 minutes. In sterile and aseptic fashion the sutures were removed. Steri-Strips were applied over the incision and a dry sterile dressing was applied. Patient may get incision site wet. Continue use of running shoe. may begin range of motion exercise. Examples given for range of motion. may begin scar treatments. Continue to utilize compression on the surgical site to minimize edema. Continue NSAID if currently taking per physician recommendation. Edema to occur in the area x 3-6 months. In sterile and aseptic fashion the sutures were removed. DSD applied. Assessment & Plan (10/03/2022 2:29 PM EST): Post-Op Visit #1: Elevation of the foot to the level of the hip as much as possible. Continue to ice 2-3 times a day for 30-45 minutes. Patient may not get incision site wet. Continue use of CAM walker. may not begin range of motion exercise. Examples given for range of motion. Continue to utilize compression on the surgical site to minimize edema. Continue NSAID if currently taking per physician recommendation. Edema to occur in the area x 3-6 months. Assessment & Plan (09/12/2022 3:03 PM EDT): They present for lab and consent for foot / ankle surgery. Conservative treatments such as shoe gear changes, activity changes, nonsteroidal anti-inflammatory medications, and rest has failed to give any improvement. Procedure, risks, postop instructions, and possible complications reviewed with patient in detail. Preop instructions reviewed. N.p.o. status reviewed. Handicap Sticker dispensed. Cam walker was not dispensed , PO shoe was dispensed and cast cover was dispensed . Need for lab work and H&P prior to surgery reviewed. Procedure scheduled: left plantar fascial release with distal tarsal tunnel release. Procedure and postoperative course were discussed in detail. Postop instruction sheet was given and reviewed. Preop instruction sheet was given and reviewed. All questions were answered and the patient will follow up for surgical procedure. Assessment & Plan (07/20/2022 12:43 PM EDT): I spent 43 minutes with the patient on the date of service. These minutes were spent in pre-visit, visit and post-visit activities. If the visit was completed in an ambulatory setting, the patient and/or parent/guardian has also been advised to contact their provider s office for worsening conditions, and seek emergency medical treatment and/or call 911 if the patient deems either necessary. Etiology, possible treatments, length of time to resolution and possible recurrence or continuation of symptoms reviewed with patient for their pathology. Patient has attempted activity changes, shoe gear changes and OTC medications for treatment of their pathology with minimal success. Surgical if applicable and conservative treatment goals for their pathology reviewed in detail. Treatment measures were reviewed in detail. Written instructions and description of etiology was dispensed to patient upon discharge if pertinent. All questions were answered for patient. They relate complete understanding of their pathology and treatment course. Return appointment discussed and will be scheduled . Discussion of previous conservative treatments attempted by the patient including but not limited to anti-inflammatory medications, multiple steroid shots bilaterally, orthotics, night splint, cast boot wear, stretching, and activity restrictions with athletic shoes. Patient relates pain is consistent. Ultrasound performed shows hypoechoic area of signal intensity in the plantar fascial area at the plantar fascial insertion plantar fascial measuring 4.8 mm in thickness. Possible treatments were reviewed. Continued conservative treatment was discussed but not currently recommended. Recommend the patient consider either PRP or open plantar fascial release of the plantar fascia. Procedures were discussed in detail as well as postoperative course. Patient will contact us through her [facility] MyChart if she wishes scheduling of the procedure. Immunizations Immunization Administration Dates Next Due COVID-19 VAC,BIVALENT(12YR UP),PFIZER 04/07/2022 COVID-19 VACC,MRNA,(PFIZER)(PF) 06/14/2021,05/18 Social History Tobacco Use Types Packs/Day Years Used Date Smoking Tobacco: Never Smokeless Tobacco: Never Tobacco Cessation:Counseling Given: Not Answered Alcohol Use Standard Drinks/Week Comments Yes 2 (1 standard drink = 0.6 oz pur e alcohol) Substance Use Answer Date Recorded In the past year, how often have you used prescription drugs for non-medical reasons? Not on file 10/03/2024 In the past year, how often have you used illega l drugs? Not on file 10/03/2024 In the past year, have you u sed any substance for non-medical reasons? No 10/03/2024 Comments No Sex and Gender Information Value Date Recorded Sex Assigned at Not on file Legal Sex Female 11:37 AM EDT Gender Identity Not on file Sexual Orientation Not on file Last Filed Vital Signs Vital Sign Reading Time Taken Comments Blood Pressure 103/70 06/22/2023 10:14 AM EDT Pulse 64 06/22/2023 10:14 AM EDT Temperature 36.6 C (97.8 F) 06/22/2023 10:14 AM EDT Respiratory Rate 18 06/22/2023 10:14 AM EDT Oxygen Saturation 99% 06/22/2023 10:14 AM EDT Inhaled Oxygen Concentration - - Weight 63.5 kg (140 lb) 06/22/2023 10:14 AM EDT Height 170.2 cm (5' 7 ) 06/22/2023 10:14 AM EDT Body Mass Index 21.93 06/22/2023 10:14 AM EDT Plan of Treatment Health Maintenance Due Date Last Done Comments Hepatitis C Screen 2015 DTaP/Tdap/Td Vaccines (1 - Tdap) 2016 Pap Smear with Reflex HPV (21-29) 2018 COVID-19 Vaccine (2023-2 5 season) 2024 04/07/2022, 06/14/2021, 05/18/2021 Influenza Vaccine (#1) 2024 Pneumococcal Vaccine 0-49 Aged Out No longer eligible based on patient's age to complete this topic Insurance BCBS OOS PLAN [facility] OOS PLAN Advance Directives Documents on File Type Date Recorded Patient Fiscal Assistant Expl anation Advance Directives 09/29/2022 * Full Code (Latest Code Status on File) Date Activated Date Inactivated Comments 09/29/2022 10:17 AM Care Teams [employer] Relationship Specialty Start Date End Date Pcp, None Per Patient [address] [place] [address] PCP - General 07/20/22
[2025-01-22 23:27] VITALS: PULSE 73; O2SAT 99
[2025-01-22 23:30] VITALS: BP 109/66; PULSE 73
[2025-01-22 23:32] VITALS: PULSE 79; O2SAT 99
[2025-01-22 23:34] LABS: OBXCEM ROM Plus Negative (Negative)
[2025-01-22 23:36] LABS: Basophils Percent Auto 0.2 % (0.2-1.2); Eosinophils Percent Auto 0.3 % (0-4.4); Hematocrit 35.3 % (37.0-47.0); Hemoglobin 12.3 g/dL (12.0-15.0); Immature Granulocyte Absolute 0.15 K/mm3 (0.00-0.031); Immature Granulocyte Percent A 1.1 % (0-0.5); Lymphocytes Absolute Auto 1.99 K/mm3 (0.9-3.2); Mean Corpuscular HGB Conc 34.8 g/dl (32-36); Mean Corpuscular Hemoglobin 31.4 pg (26-34); Mean Corpuscular Volume 90.1 fl (80-100); Mean Platelet Volume 10.6 fl (7.4-10.4); Monocytes Absolute Auto 0.8 K/mm3 (0.1-0.6); Monocytes Percent Auto 5.8 % (2.6-8.5); Neutrophils Absolute Auto 11.2 K/mm3 (1.3-6.7); Neutrophils Percent Auto 78.6 % (45.5-73.1); Platelet Count Result 166 k/mm3 (150-375); Red Blood Count 3.92 M/mm3 (4.2-5.4); Red Cell Distribution Width 12.5 % (11.5-14.5); White Blood Count 14.2 K/mm3 (4.5-10.0)
--- NOTE | 2025-01-22 23:38 | LDADM ---
This patient, Patricia Whitehead, was admitted to Labor/Delivery/Recovery 107 on 01/22/25 at 22:48. Plans for labor, pain management and were discussed with patient. Patient/family oriented to hospital policies and general routines including ID bracelet, bed and alarms, visiting hours, pain management, procedures, bathroom and other care routines, personal items, smoking policy, room service/diet and guest tray routines, security routines, and visiting hours. Patient/Family are encouraged to report perceived risks to care and to ask questions if they do not understand what they are told or what they should do. See [facility]BI[facility] for further documentation.
[2025-01-22 23:52] VITALS: BMI 26.6
[2025-01-23] VITALS (57 sets, daily range): BP systolic 93–122; BP diastolic 49–103; PULSE 62–174; RESP 15–18; TEMP 36.5–37.2; O2SAT 90–100
[2025-01-23 00:19] LABS: Syphilis IgG/IgM Antibody Negative (Negative)
[2025-01-23 00:22] LABS: Hepatitis B Surface Antigen Negative (Negative)
[2025-01-23 00:28] LABS: HIV 1/2 Ab P24 Ag Result Negative (Negative)
[2025-01-23 00:47] LABS: Rubella IgG Antibody > 110.0 IU/ML
[2025-01-23] MEDS: LACTATED RINGERS 500 ML 999 ML IV CONT (03:23)
[2025-01-23] MEDS: LACTATED RINGERS 1,000 ML 125 ML IV CONT (03:23)
[2025-01-23] MEDS: FAMOTIDINE 20 MG/2 ML VIAL (03:35)
[2025-01-23] MEDS: ONDANSETRON INJ 4 MG/2 ML VIAL IV PUSH (03:35)
[2025-01-23] MEDS: OXYTOCIN 30 UNITS/NS 500 ML 30 UNITS/500 ML BAG 999 UNITS IV CONT (04:19)
--- NOTE | 2025-01-23 04:28 | PM.OBPRVD ---
OB - Vaginal Delivery Note Procedure Delivery date: 01/23/25 Delivery augmentation: Rupture of Membranes (forebag) Delivery monitor: External FHT and External Uterine Route of delivery: Episiotomy description: None Laceration Description: Perineal - 1st Degree Delivery repair: other (none) Specimen: No Quantitative Blood Loss (ml): 100 Anesthesia type: None Disposition: Floor Complications: No immediate complications Baby Date of : 01/23/25 Time of : 04:10 Gestational Age by Date: 40 Infant gender: Female presentation: vertex position: Right Occiput Anterior Placenta delivery description: Spontaneous Cord Vessel Description: 3 Vessels, Nuchal Cord (x1), Loose and Delayed Cord Clamping score one minute: 8 score five minutes: 9
[2025-01-23] MEDS: OXYTOCIN 30 UNITS/NS 500 ML 30 UNITS/500 ML BAG 125 UNITS IV CONT (04:55)
[2025-01-23] MEDS: ACETAMINOPHEN 325 MG TABLET 650 MG PO (06:43)
[2025-01-23] MEDS: WITCH HAZEL 40 PADS 1 PAD TOPICAL (06:43)
[2025-01-23] MEDS: BENZOCAINE 20% AER SPR (*SP) 56 GM CAN 1 SPRAY TOPICAL (06:44)
--- NOTE | 2025-01-23 08:40 | PC.NURSE ---
Patricia called out for assistance. She seemed discouraged when I entered the room. She wasn't thrilled about using the nipple shield they gave her downstairs. She was worried it was causing more pain. Her nipples are inverted but natasha well with feeding. Observed mother latching to the [left & right] breasts in [cross cradle & football] position. We got the best latch on the right in cross cradle. was eager and sucked vigorously. Mom did have complaints of pain and we discussed tethers that could get pulled when her nipples natasha. Infant [was] able to maintain an appropriate latch. Mom was shown how to break suction and how to recognize nutritive vs nonnutritive sucks. Baby was swallowing intermittently and sometimes multiple times in row. Encouraged mother to allow infant to nurse as long as she likes and to call if she needs assistance with switching sides. Mother taught to listen for swallowing during feedings. Reviewed using the blue feeding sheet to record time and duration of feeding. Mother voiced understanding of the education shared, to call for assistance if the infant does not latch or if there is discomfort with . name/number on communication board. Reported to the Primary RN.?
--- NOTE | 2025-01-23 09:40 | PC.NURSE ---
Mother called out because baby just fed but is acting hungry again. We latched baby to the left breast in football hold. Baby suckled off and on for about ten minutes and then released the breast. She did root a little but we wrapped her up and put her in the cirb and she settled. Mom and dad are going to try to nap while baby is sleeping. Reported to primary RN.
--- NOTE | 2025-01-23 13:05 | PC.NURSE ---
Mother called out for feeding assistance. Baby slept well since the last feeding and mom is trying to wake her to latch. Baby was in cross cradle hold on the right breast. Mom's nipples are red and sore. We discussed that inverted nipples do tend to become everted over time but that it is a process of stretching that may be uncomfortable. Assisted mother to latch to the [right] breast in [cross cradle] position. Infant [was] able to maintain an appropriate latch. She suckles consistently and vigorously. Mother [complains of] nipple pain/discomfort [most with initial latch on but also throughout feeding]. Encouraged mother to keep infant at breast for as long as desired and then offer the other side if baby still acts hungry. Parents are encouraged to call out for help switching sides or relatching if needed. Mother voiced understanding of the education shared, to call for assistance if the infant does not latch or if there is discomfort with . name/number on communication board. Reported to the Primary RN.?
--- NOTE | 2025-01-23 15:56 | PC.NURSE ---
On 01/23/25, the [facility] qa specialist, Cally, provided care and completed [employer] documentation on this patient. I have reviewed the student's documentation and agree with the findings.
--- NOTE | 2025-01-23 18:35 | PC.NURSE ---
1730 Mother called out for assistance. Mother had baby skin to skin and baby was showing feeding cues, she was able to latch baby to her left breast in cross cradle and baby maintained her latch. Per mother less pain with this feeding than the last.
[2025-01-24] VITALS: BP 106/71; PULSE 66; RESP 18; TEMP 36.8; O2SAT 97
[2025-01-24 05:38] LABS: Hematocrit 35.2 % (37.0-47.0)
--- NOTE | 2025-01-24 07:26 | PM.OBPNVD ---
OB - PN: Subj Subjective Date/time seen: 01/24/25 07:26 Interval history: pp day 1 doing well OB - PN: Obj Data Labs 01/24/25 04:17 Labs: Laboratory Results - last 24 hr 01/24/25 04:17 Hgb 12.0 Hct 35.2 L OB - PN A/P Plan day: 1 Plan: routine care Time Spent With Patient Time: Total time spent is greater than 50% in coordination of care (as documented) at patient's floor/unit and/or counseling patient: Review of Systems Review of Systems: All systems reviewed & are unremarkable except as noted in HPI and below Exam Const: General: cooperative and healthy appearing Chest: Chest palpation & inspection: normal inspection of the chest Resp: Effort & Inspection: normal respiratory effort Cardio: Rate: regular rate GI: Inspection: normal to inspection Skin: General skin exam: normal color Neuro: General: patient oriented x3
[2025-01-24] MEDS: POLYSACCHARIDE IRON COMPLEX 150 MG CAPSULE PO (08:26)
[2025-01-24] MEDS: MULTIVIT/MIN/PREN/FOL AC/IRON TABLET 1 TAB PO (08:26)
[2025-01-24 09:00] VITALS: BP 109/70; PULSE 64; RESP 18; TEMP 36.9; O2SAT 98
--- NOTE | 2025-01-24 10:07 | PC.NURSE ---
All charting and nursing care performed by student nurse, Ladonna Rain, was reviewed by this RN/Clinical Instructor.
--- NOTE | 2025-01-24 10:45 | PC.NURSE ---
8400 Mother verbalizes she is able to independently latch infant with appropriate positioning and alignment, she called out for to check the latch. RN advised mother to make sure baby's lips are flanged out and not rolled in when she is . She feels that the nipple discomfort is improving and is responsively . is currently meeting outcomes for weight, output, jaundice, and feeding frequencies of 8-12 times in 24 hours. Mother declines any additional assistance or education at this time. Mother is encouraged to call for assistance if her infant doesn?t latch, pain with latching, questions or concerns. Mother voiced understanding of information shared along with the mom/baby guide for an additional resource. Reported to the Primary RN. 1623 Mother called out for assistance, she needed help waking baby up. At this time it had been 3 hours since the last feed and baby was showing no feeding cues, mother wanted to go ahead and take her shower and then she would try again and call out if she needed any assistance.
[2025-01-24] MEDS: ACETAMINOPHEN 325 MG TABLET 650 MG PO (13:09)
[2025-01-24 18:50] VITALS: BP 98/60; PULSE 63; RESP 18; TEMP 36.6; O2SAT 99
[2025-01-25 08:00] VITALS: BP 101/71; PULSE 61; RESP 16; TEMP 36.8; O2SAT 98
--- NOTE | 2025-01-25 09:05 | PC.NURSE ---
Consulted with mother concerning needs and she shared her ability to independently latch infant but mother does complain of nipple discomfort, was given lanolin previously but had not used, she is using the silver discs she brought and the cool gel pads. RN encouraged use of lanolin after each feeding. RN assessed optimal latch with baby on her left breast in cross cradle, father of baby also assisted and made sure that baby's lips were flanged. Mother requested nipple measurement as well, she has her own Mom Cozy breast pump, each nipple measured 20mm. Mother is feeding appropriately for growth of and understands stimulating infant to eat if needed. Infant has had appropriate feedings in the last 24 hours meets the outcomes for weight, output, blood sugar and jaundice at this time. Reinforced understanding of milk production, transition of milk, signs of adequate intake, transition of stool, prevention/relief of engorgement, plugged ducts, mastitis, responsive watching for feeding cues, the different methods of stimulating to breastfeed 1-3 hours after the start of the last feeding, community resources, and when to call a provider using the resource of the feeding sheet along with the mom and baby guide. Mother voiced understanding of the information shared, is confident to continue effectively her at home, when to call for assistance, denies any additional assistance or education at this time. Reported to the Primary RN.
--- NOTE | 2025-01-25 11:16 | PM.OBPNVD ---
OB - PN: Subj Subjective Date/time seen: 01/25/25 11:16 Interval history: pp day 2 doing well voiding without issue ready for discharge today OB - PN: Obj Data Labs 01/24/25 04:17 OB - PN A/P Assessment and Plan (1) (spontaneous vaginal delivery): Code(s): O80 - Encounter for full-term uncomplicated delivery Status: Acute Plan day: 2 Plan: routine care and discharge home Time Spent With Patient Time: Total time spent is greater than 50% in coordination of care (as documented) at patient's floor/unit and/or counseling patient: Review of Systems Review of Systems: All systems reviewed & are unremarkable except as noted in HPI and below Exam Const: General: cooperative and healthy appearing Chest: Chest palpation & inspection: normal inspection of the chest Resp: Effort & Inspection: normal respiratory effort Cardio: Rate: regular rate GI: Inspection: normal to inspection Skin: General skin exam: normal color Neuro: General: patient oriented x3
--- NOTE | 2025-01-25 11:21 | PM.OBDSVD ---
DS: Admitting Diagnosis Discharge Date 01/25/25 Admitting Diagnosis labor DS: Discharge Diagnosis Discharge Diagnosis (1) (spontaneous vaginal delivery): Code(s): O80 - Encounter for full-term uncomplicated delivery Status: Acute OB - DS: Summary OB Procedures : None OB Procedures Intrapartum: Spontaneous Vag Delivery OB Procedures: : None Peripartum Data Laceration Description: Perineal - 1st Degree Episiotomy description: None Time Spent with Patient Time attestation: Total time spent providing and/or coordinating discharge services: Discharge Plan Discharge Attending physician on discharge: Alban García Discharging Clinician: Alban García Patient Disposition: Home, Self-Care Activity: may shower, as tolerated and pelvic rest Diet: as tolerated Patient Instructions: Antibiotic Form Patient Language: Slovenian Stand Alone Forms: General Discharge Information Follow-up/Referrals: Junie Lester CNM [Certified Nurse Auger Supervisor] - 5 Weeks Discharge Medications: New docusate sodium 100 mg Capsule 100 mg PO BID PRN (Reason: Constipation) Qty: 60 0RF Continued PNV cmb#95-ferrous fumarate-FA [] 28 mg iron- 800 mcg tablet 1 tablet PO DAILY Date of admission: 01/22/25 22:48 Primary Care Provider: UNKNOWN,DOCTOR Admitting Provider: Silvestre Adams Attending physician on admission: Silvestre Adams Condition: Stable
[2025-01-27 10:27] VITALS: BP 122/61; PULSE 68; RESP 18; TEMP 36.9; O2SAT 100
--- NOTE | 2025-01-27 10:45 | PC.NURSE ---
Follow up RN called for assessment of a latch. Patient had called and left a message yesterday on the phone. Baby has been cluster feeding and acting unsatisfied. At the follow up, baby's weight and jaundice are WNL. Baby has had 3 wets in the last 24 hours and no stools in 60 hours. Reviewed with parents that we should be seeing at least 3-4 yellow stools each day from here on out. The admissions nurse ordered parents to supplement with formula after each . Mom has pumped once and got drops. Encouraged her to practice with her pump and adjust to the highest comfortable setting. Mom is feeling breast changes and firmness. Encouraged pumping after feedings a few times a day, as long as it isn't feeling too overwhelming. We also reviewed pacifier use and caution to use it conscientiously and not to hold off feedings. Baby latched well with effort to wake her. She is sleepy this morning after cluster feeding all night. Mom has latch on pain but it does dissipate with suckling, however it is not pain free. Mom has silverettes, lanolin, and hydrogel pads. Her nipples are inverted between feeds but natasha with feeds. Encouraged maintaining the deep latch throughout the feeding and breaking suction if it becomes shallow. Mom works well with baby and positions her well. Dad is very helpful and supportive. We viewed nonnutritive sucks and a few nutritive sucks with swallows. Mom knows that as her milk comes in baby should have a pattern of 1 suck to 1 swallow. If there isn't improvement in milk transfer and infant satisfaction, parents will call for an outpatient appointment. Encouraged continued supplementation until seen by the admissions nurse. Parents have the phone number to call for further assistance as needed.
== END 2025-01-25 12:25 | disposition home or self-care (01) | DRG 807 ==
LOC: ANHOB2 01-25 11:21 → ANHLDR 01-28 08:44 → ANHOB2 01-28 08:44
PROVIDERS: Admitting Provider Obstetrics & Gynecology; Referring Provider Advanced Practice Midwife; Visit Provider Obstetrics & Gynecology
DX: O69.81X0 Labor and delivery complicated by cord around neck, without compression, not applicable or unspecified (principal); Z37.0 Single live birth; O70.0 First degree perineal laceration during delivery; Z3A.40 40 weeks gestation of pregnancy
CPT/HCPCS: 36415; 84112; 85014; 85018; 85025; 86593; 86703; 86762; 86850; 86900; 86901; 87340; A9270; G0432; J2405; J2590; J7120